=== PATIENT | female | born 1975 | race Caucasian/White ===

== ENCOUNTER 2016-08-09 18:41 | Emergency (ER) | payer BC, OTHER ==
[~2016-08-09] VITALS: Ht 172.7 cm; Wt 102.0 kg
[~2016-08-09 18:41] MED LIST: ASPI1TAB21 PO; NAPR-688 PO; RANI-270 PO
[2016-08-09 18:51] VITALS: Ht 172.7 cm; Wt 102.0 kg
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
[2016-08-09 19:28] LABS: ADD SCAN DIFF NO; BASOPHILS % 0.4 % (0.0-2.0); EOSINOPHILS # 0.2 10^3/ul (0.0-0.5); EOSINOPHILS % 1.8 % (0.0-7.0); HEMATOCRIT 35.8 % (37.0-47.0); HEMOGLOBIN 11.7 g/dl (12.0-16.0); LYMPHOCYTES # 2.4 10^3/ul (0.8-2.9); LYMPHOCYTES % 22.6 % (15.0-51.0); MEAN CORPUSCULAR HEMOGLOBIN 28.3 pg (29.0-33.0); MEAN CORPUSCULAR HGB CONC 32.7 g/dl (32.0-37.0); MEAN CORPUSCULAR VOLUME 86.7 fl (82.0-101.0); MEAN PLATELET VOLUME 10.6 fl (7.4-10.4); MONOCYTE # 0.6 10^3/ul (0.3-0.9); MONOCYTES % 5.8 % (0.0-11.0); NEUTROPHIL # 7.5 10^3/ul (1.6-7.5); PLATELET COUNT 337 10^3/UL (140-415); RED BLOOD COUNT 4.13 10^6/ul (4.20-5.40); RED CELL DISTRIBUTION WIDTH 12.9 % (11.5-14.5); WHITE BLOOD COUNT 10.8 10^3/ul (4.8-10.8)
[2016-08-09] MEDS ORDERED: HYDROCODONE/APAP (10/325) TAB PO ONE (19:30)
[2016-08-09 19:46] LABS: ALBUMIN 4.8 g/dl (3.3-4.9); ALBUMIN/GLOBULIN RATIO 1.41; BILIRUBIN,INDIRECT 0.1 mg/dl (0-1.1); BILIRUBIN,TOTAL 0.1 mg/dl (0.2-1.3); CALCIUM 9.5 mg/dl (8.4-10.2); CREATININE 0.77 mg/dl (0.44-1.00); POTASSIUM 4.1 mmol/L (3.5-5.1); TOTAL PROTEIN 8.2 g/dl (6.1-8.1)
[2016-08-09 19:51] LABS: ADD UMIC NO; UR ASCORBIC ACID 40 mg/dL (NEGATIVE); UR BILIRUBIN (Dip) NEGATIVE (NEGATIVE); UR BLOOD (Dip) NEGATIVE (NEGATIVE); UR CLARITY SLIGHTLY CLOUDY (CLEAR); UR COLOR YELLOW (YELLOW); UR GLUCOSE (Dip) NEGATIVE (NEGATIVE); UR KETONES (Dip) NEGATIVE (NEGATIVE); UR LEUKOCYTE ESTERASE (Dip) NEGATIVE Leu/ul (NEGATIVE); UR NITRITE (Dip) NEGATIVE (NEGATIVE); UR RBC 1 /HPF (0-5); UR SPECIFIC GRAVITY (Dip) 1.021 (1.003-1.030); UR SQUAMOUS EPITHELIAL CELL FEW /HPF (FEW); UR TOTAL PROTEIN (Dip) NEGATIVE (NEGATIVE); UR UROBILINOGEN (Dip) NEGATIVE (NEGATIVE)
--- NOTE | 2016-08-09 20:25 | RADRPT ---
PROCEDURE: CT Abdomen and Pelvis without contrast CLINICAL INDICATION: Low back pain, left lower quadrant pain TECHNIQUE: Transaxial images were obtained through the abdomen and pelvis on a multi-slice scanner without the intravenous contrast administration. No oral contrast had previously been given. Sagit brian and coronal re-formations were subsequently reconstructed. One or more of the following dose reduction techniques were used: - Automated exposure control. - Adjustment of the mA and/or kV according to patient size. - Use of iterative reconstruction technique. Radiation dose: CTDIvol = 17.66 mGy; DLP = 1111.70 mGy-cm. COMPARISON: No prior studies are available for comparison. FINDINGS: Lung bases: The visualized lung bases appear unremarkable. Liver: The liver is mildly enlarged and appears somewhat heterogeneously fatty infiltrated with no d iscrete focal lesion identified. Gallbladder: The wall is not thickened. No radiopaque stones are identified. Bile ducts: The intra and extrahepatic bile ducts are normal in caliber. Pancreas: Appears normal with no mass or inflammation evident. Spleen: Normal in size with no focal lesion. Adrenals: Normal with no mass identified. Kidneys, ureters and bladder: The kidneys are normal in size and there is no mass, pathological calc ification, or hydronephrosis evident. There is no perinephric stranding. The ureters are normal in c aliber and no ureteroliths are identified. The bladder is poorly distended. Reproductive organs: Unremarkable. Stomach and bowel: The stomach is moderately distended with food debris. The small bowel gas patter n is unremarkable. Substantial stool is seen in the right colon without evidence of bowel obstructi on or inflammation. Appendix: A normal vermiform appendix is evident. Peritoneum: No free intraperitoneal fluid or air is identified. Aorta: Normal in caliber with no aneurysmal dilatation. IVC: Unremarkable. Lymph nodes: No pathologically enlarged nodes are identified. Osseous structures: The osseous elements appear intact. There are broad-based mild posterior disk bu lges at L4-5 and L5-S1. IMPRESSION: 1. Mild hepatomegaly with somewhat heterogeneous fatty infiltration but with no discrete focal lesi on identified. 2. No evidence of bowel obstruction or inflammation with a normal vermiform appendix. 3. There is no free intraperitoneal fluid or air. 4. The osseous structures appear intact. There is a broad-based posterior disk bulges at L4-L5 and L5-S1. Jayy Irwin Physician Date Time Electronically viewed and signed by Jayy Irwin Physician on 08/09/2016 20:24 /
[2016-08-09] MEDS ORDERED: TRAM50TA2 PO (20:57)
== END 2016-08-09 21:20 | disposition home or self-care (01) ==
LOC: FTE 18:41
DX: M51.36 Other intervertebral disc degeneration, lumbar region (principal); K76.0 Fatty (change of) liver, not elsewhere classified; R10.2 Pelvic and perineal pain; I10 Essential (primary) hypertension; Z79.82 Long term (current) use of aspirin
CPT/HCPCS: 36415; 74176; 80053; 81001; 83690; 85025; Z7502; Z7610; 81003

== ENCOUNTER 2017-07-15 13:59 | Emergency (ER) | END 2017-07-15 16:30 | disposition home or self-care (01) ==

== ENCOUNTER 2017-07-17 13:34 | Emergency (ER) | END 2017-07-17 17:03 | disposition home or self-care (01) ==

== ENCOUNTER 2017-07-22 14:57 | Emergency (ER) | END 2017-07-22 18:20 | disposition home or self-care (01) ==

== ENCOUNTER 2017-07-27 12:52 | Day surgery (SDC) | END 2017-07-27 19:20 | disposition home or self-care (01) ==